=== PATIENT | female | born 1965 | race Caucasian/White ===

== ENCOUNTER → 2016-08-30 | Outpatient (CLI) | payer BC, OTHER ==
[~2016-08-30] MED LIST: ALPR.25T; ALPR.5T PO; ATEN25TA; CLIN300C11 PO; CYAN10007 PO; DEXL60CA PO; DICY20TA10 PO; DICY20TA33 PO; HCT25T PO; HYDR-3812 PO; HYDR50TA3 PO; KCL20TCR; L.AC1CAP6 PO; LISI10TA2 PO; META-84 PO; METO25TA PO; MULT-608; NF-ACI30T PO; NORE1TAB40 PO; OMEG1CAP51 PO; OMG1KC; PANT20TA2 PO; PANT40TA2 PO; POTA99TA7 PO; POTASSIUM 8 MEQ PO; RANI150C11 PO; RT-ALBUINH IH; SERT50TA; SERT50TA PO; SPIR100T; SPIRONOLACTONE; SPRN25T; SPRN25T PO; SULF1TAB35 PO; TRAM-21; VIT PO; [UNRECOGNIZED DRUG - OTHER] PO
[2016-08-30 15:45] LABS: BLOOD UREA NITROGEN 16 MG/DL (7-18); BUN/CREATININE RATIO 19; CREATININE SERUM 0.84 MG/DL (0.60-1.30); GFR ESTIMATED > 60
[2016-08-31 07:39] LABS: BERMUDA CL CLASS 0; BERMUDA GRASS RAST <0.35 kU/L (<0.35); ELM TREE <0.35 kU/L (<0.35); ELM TREE CL CLASS 0; KENT BLUE CL CLASS 0; KENTUCKY BLUE GRASS RAST <0.35 kU/L (<0.35); OAK TREE <0.35 kU/L (<0.35); OAK TREE CL CLASS 0; PECAN TR CL CLASS 0
[2016-08-31 07:40] LABS: CAT DANDER CL CLASS 0; CAT DANDER RAST <0.35 kU/L (<0.35); DOG DANDER CL CLASS 0; DOG DANDER RAST <0.35 kU/L (<0.35); DUST MITE RAST <0.35 kU/L (<0.35); JOHNSON GR CL CLASS 0; JOHNSON GRASS RAST <0.35 kU/L (<0.35); MARSH ELDER RAST <0.35 kU/L (<0.35); RAGWEED CL CLASS 0; RAGWEED RAST <0.35 kU/L (<0.35); ROUGH MARSH CL CLASS 0
[2016-08-31 07:41] LABS: ALLERGEN INTERP SEE FOOTNOTE; ALT TEN CL CLASS 0; CLADOSPORIUM CL CLASS 0; CLADOSPORIUM MOLD RAST <0.35 kU/L (<0.35); DUST MITE CL CLASS 0
== END ==
LOC: LAB 14:57
PROVIDERS: ATTEND Nurse Practitioner Family
DX: R76.11 Nonspecific reaction to tuberculin skin test without active tuberculosis (principal); R06.00 Dyspnea, unspecified; J30.9 Allergic rhinitis, unspecified
CPT/HCPCS: 36415; 82565; 84520; 86003; 86480

== ENCOUNTER 2016-09-04 10:52 | Outpatient (CLI) | payer OTHER | END 2016-09-04 11:13 | disposition home or self-care (01) | LOC: SLEEP 10:52 | PROVIDERS: ATTEND Nurse Practitioner Family | DX: G47.50 Parasomnia, unspecified (principal); G47.10 Hypersomnia, unspecified ==

== ENCOUNTER → 2016-09-05 | Outpatient (CLI) | payer BC, OTHER ==
[~2016-09-05] MED LIST changes: +RT-ALBUTEROL SULF 2.5 MG/3 ML PRE-MIX VIAL IH ONE
== END ==
LOC: RT 15:09
PROVIDERS: ATTEND Nurse Practitioner Family
DX: R05 Cough (principal); R06.00 Dyspnea, unspecified; R76.11 Nonspecific reaction to tuberculin skin test without active tuberculosis; M79.89 Other specified soft tissue disorders; J30.9 Allergic rhinitis, unspecified
CPT/HCPCS: 94060; 94640; 94726; 94729

== ENCOUNTER → 2016-09-06 | Outpatient (CLI) | payer BC, OTHER ==
[~2016-09-06] MED LIST changes: -RT-ALBUTEROL SULF 2.5 MG/3 ML PRE-MIX VIAL IH ONE
[2016-09-06] MEDS: IOHEXOL 350 MG/ML 150 ML (OMNIPAQUE 350) VIAL IV ONE (17:48)
[2016-09-06] MEDS: NS 100 ML (IVPB) BAG IV ONE (17:49)
--- NOTE | 2016-09-06 17:59 | Diagnostic Imaging Report ---
PROCEDURE: CT angiography of the chest with contrast. TECHNIQUE: Multiple contiguous axial images were obtained through the chest after uneventful bolus administration of intravenous contrast. Reconstructed CTA MIP acquisitions were also performed. INDICATION: Chest pain and leg swelling. COMPARISON: 10/27/2014. FINDINGS: There is no evidence of pulmonary embolus. No thoracic aortic abnormality is suspected. There is some motion artifact which limits evaluation of the ascending aorta and a portion of the aortic arch. There is no pneumothorax or pleural fluid demonstrated. The lungs are clear. There is a small hiatal hernia. Visualized upper abdomen is unremarkable. There is no adenopathy. No acute osseous abnormality is suspected. IMPRESSION: There is no evidence of pulmonary embolus or other acute abnormality in the chest. There is a small hiatal hernia. Dictated by: Dictated on workstation # [id number]
== END ==
LOC: RAD 16:00
PROVIDERS: ATTEND Nurse Practitioner Family
DX: M79.89 Other specified soft tissue disorders (principal); R76.11 Nonspecific reaction to tuberculin skin test without active tuberculosis; R06.00 Dyspnea, unspecified; K44.9 Diaphragmatic hernia without obstruction or gangrene
CPT/HCPCS: 71275

== ENCOUNTER → 2016-10-15 | Outpatient (CLI) | payer BC, OTHER ==
[2016-10-15 16:26] LABS: ALBUMIN 4.1 GM/DL (3.2-4.5); BILIRUBIN,TOTAL 0.3 MG/DL (0.1-1.0); CALCIUM 8.9 MG/DL (8.5-10.1); CREATININE SERUM 1.06 MG/DL (0.60-1.30); TOTAL PROTEIN 7.2 GM/DL (6.4-8.2)
== END ==
LOC: LAB 15:41
PROVIDERS: ATTEND Nurse Practitioner Family
DX: R76.11 Nonspecific reaction to tuberculin skin test without active tuberculosis (principal)
CPT/HCPCS: 36415; 80053

== ENCOUNTER → 2016-11-16 | Outpatient (CLI) | payer BC, OTHER ==
--- NOTE | 2016-11-17 08:15 | Diagnostic Imaging Report ---
INDICATION: Digital mammogram bilateral screening with tomosynthesis. This study was compared to the prior exam of 10/12/14 and 08/13/13. At this time there are no current complaints. The current study was also evaluated with a Computer Aided Detection (CAD) system. FINDINGS: There is only a mild amount of fibroglandular tissue in both breasts. When compared to the previous study there does not appear to have been any significant change. There is no primary or secondary sign of malignancy noted. The 3-D tomographic views also fail to show any sign of malignancy. The stereotactic clips in the lateral aspect of the left breast seen previously are again evident and no different. IMPRESSION: There is no evidence malignancy. ACR BI-RADS Category 1: Negative. Result letter will be mailed to the patient. Note: At least 10% of breast cancer is not imaged by mammography. Dictated by: Dictated on workstation # [id number]
== END ==
LOC: RAD 10:26
PROVIDERS: ATTEND Family Medicine
DX: Z12.31 Encounter for screening mammogram for malignant neoplasm of breast (principal)
CPT/HCPCS: 77067

== ENCOUNTER → 2017-06-13 | Outpatient (CLI) | payer BC, OTHER ==
[~2017-06-13] MED LIST changes: +ACHD5005 PO; -HYDR-3812 PO
[2017-06-13 10:23] LABS: BASOPHILS # (AUTO) 0.1 10^3/uL (0.0-0.1); BASOPHILS % (AUTO) 1 % (0-10); EOSINOPHILS # (AUTO) 0.2 10^3/uL (0.0-0.3); EOSINOPHILS % (AUTO) 2 % (0-10); HEMATOCRIT 44 % (35-52); HEMOGLOBIN 14.7 G/DL (11.5-16.0); LYMPHOCYTES # (AUTO) 2.1 X 10^3 (1.0-4.0); LYMPHOCYTES % (AUTO) 26 % (12-44); MEAN CORPUSCULAR HEMOGLOBIN 29 PG (25-34); MEAN CORPUSCULAR HGB CONC 34 G/DL (32-36); MEAN CORPUSCULAR VOLUME 85 FL (80-99); MONOCYTES # (AUTO) 0.6 X 10^3 (0.0-1.0); MONOCYTES % (AUTO) 8 % (0-12); NEUTROPHILS # (AUTO) 5.1 X 10^3 (1.8-7.8); NEUTROPHILS % (AUTO) 64 % (42-75); PLATELET COUNT 288 10^3/uL (130-400); RED BLOOD COUNT 5.12 10^6/uL (4.35-5.85); RED CELL DISTRIBUTION WIDTH 13.6 % (10.0-14.5)
== END ==
LOC: LAB 10:12
PROVIDERS: ATTEND Nurse Practitioner Family
DX: R76.11 Nonspecific reaction to tuberculin skin test without active tuberculosis (principal)
CPT/HCPCS: 36415; 85025

== ENCOUNTER 2017-11-07 08:38 | Outpatient (RCR) | payer BC, OTHER | END 2017-12-10 13:18 | disposition home or self-care (01) | PROVIDERS: ATTEND Family Medicine | DX: M48.02 Spinal stenosis, cervical region (principal); M51.36 Other intervertebral disc degeneration, lumbar region ==

== ENCOUNTER → 2018-10-09 | Outpatient (CLI) | payer BC, OTHER ==
--- NOTE | 2018-10-09 18:59 | Diagnostic Imaging Report ---
INDICATION: Routine screening. COMPARISON: Comparison is made with prior mammogram 11/16/2016 and 10/12/2014. 2-D and 3-D bilateral screening mammography was performed. The current study was also evaluated with a Computer Aided Detection (CAD) system. 3-D tomosynthesis was also performed and reviewed. FINDINGS: Both breasts are primarily involutional. Benign-appearing nodule in the outer portion of the right breast is stable. There are marker clips from prior biopsy in the lateral portion of the left breast, unchanged. No new mass or malignant-appearing microcalcifications are seen. Axillae are unremarkable. IMPRESSION: No mammographic features suspicious for malignancy are identified. ACR BI-RADS Category 2: Benign findings. Result letter will be mailed to the patient. Note: At least 10% of breast cancer is not imaged by mammography. Dictated by: Dictated on workstation # [id number]
== END ==
LOC: RAD 10:50
PROVIDERS: ATTEND Family Medicine
DX: Z12.31 Encounter for screening mammogram for malignant neoplasm of breast (principal)
CPT/HCPCS: 77067

== ENCOUNTER → 2019-10-14 | Outpatient (CLI) | payer OTHER ==
--- NOTE | 2019-10-15 08:42 | Diagnostic Imaging Report ---
INDICATION: Routine screening. COMPARISON: 10/09/2018 and 11/16/2016. TECHNIQUE: 2D and 3D bilateral screening mammography was performed with CAD. FINDINGS: Scattered fibroglandular densities are identified bilaterally. Biopsy marker clips in the lateral left breast are again noted. The benign nodule in the outer right breast is stable. No spiculated mass or malignant appearing microcalcifications are seen. The axillae are unremarkable. IMPRESSION: No mammographic features suspicious for malignancy are identified. ACR BI-RADS Category 2: Benign findings. Result letter will be mailed to the patient. Note: At least 10% of breast cancer is not imaged by mammography. Dictated by: Dictated on workstation # [id number]
== END ==
LOC: RAD 15:11
PROVIDERS: ATTEND Family Medicine
DX: Z12.31 Encounter for screening mammogram for malignant neoplasm of breast (principal)
CPT/HCPCS: 77063; 77067

== ENCOUNTER → 2019-11-11 | Outpatient (CLI) | payer OTHER ==
--- NOTE | 2019-11-12 15:34 | Diagnostic Imaging Report ---
PATIENT: Gema Abrams : 1965 EXAMINATION: Right hip, 2 views, on 11/11/2019 at 3:04 PM. INDICATION: Right hip pain for three weeks. FINDINGS: Two views of the right hip were obtained. Femoral acetabular alignment is normal. Joint space is well maintained. Femoral head and neck are intact. No fracture is identified. IMPRESSION: No acute bony abnormality is detected. Dictated by: Dictated on workstation # [id number]
== END ==
LOC: RAD 14:36
PROVIDERS: ATTEND Family Medicine
DX: M25.551 Pain in right hip (principal)
CPT/HCPCS: 73502

== ENCOUNTER → 2019-12-22 | Outpatient (CLI) | payer OTHER ==
--- NOTE | 2019-12-22 15:19 | Diagnostic Imaging Report ---
PROCEDURE: MRI lumbar spine without contrast. TECHNIQUE: Multiplanar, multisequence MRI of the lumbar spine was performed without contrast. INDICATION: Chronic low back pain. No known injury. COMPARISON: 07/08/2014. FINDINGS: 5 lumbar type vertebral bodies are visualized with the last well-formed disc space designated L5-S1. No acute fracture or dislocation is seen in the lumbar spine. There is straightening of the lumbar spine. Vertebral body heights are maintained. Endplate degenerative changes are present at the L3-L4 level. The conus terminates at the L1 level. No masses are seen associated with the conus or nerve roots of the cauda equina. No epidural collections are identified. Multilevel degenerative changes are seen in the lumbar spine with disc bulges, facet hypertrophy, and buckling of the ligamentum flavum. T12-L1: Broad-based disc bulge, facet hypertrophy, and buckling of ligamentum flavum results in iykb-to-zsspoulc spinal canal narrowing and mild bilateral foraminal narrowing. L1-L2: Broad-based disc bulge, facet hypertrophy, and buckling of ligamentum flavum results in ohti-qy-rkqrxkvf spinal canal narrowing and mild bilateral foraminal narrowing. L2-L3: Right subarticular protrusion, facet hypertrophy, and buckling of ligamentum flavum results in hircxjks-he-ttfwcd right lateral recess stenosis and moderate right and mild left foraminal stenosis. L3-L4: Broad-based disc bulge, facet hypertrophy, and buckling of ligamentum flavum results in sillaigq-vg-lcdqps spinal canal stenosis and moderate bilateral foraminal stenosis. L4-L5: Broad-based disc bulge, facet hypertrophy, and buckling of the ligamentum flavum results in moderate spinal canal stenosis and moderate bilateral foraminal stenosis. L5-S1: Broad-based disc bulge, facet hypertrophy, and buckling of the ligamentum flavum results in no significant spinal canal narrowing and severe left and irjqzkvz-up-mcbnlz right foraminal stenosis. Paravertebral soft tissues are unremarkable. IMPRESSION: 1. No acute fracture or dislocation in the lumbar spine. 2. Multilevel degenerative changes in the lumbar spine, greatest at L3-L4, L4-L5, and L5-S1. Overall, the degenerative changes have progressed since the prior exam from 2014. Dictated by: Dictated on workstation # [id number]
== END ==
LOC: RAD 12:30
PROVIDERS: ATTEND Physician Assistant
DX: M47.27 Other spondylosis with radiculopathy, lumbosacral region (principal)
CPT/HCPCS: 72148

== ENCOUNTER → 2020-02-29 | Outpatient (CLI) | payer OTHER ==
[~2020-02-29] MED LIST changes: -CLIN300C11 PO; +CLIN300C12 PO
== END ==
LOC: LABNPT 05:58
PROVIDERS: ATTEND Orthopaedic Surgery Orthopaedic Surgery of the Spine
DX: Z01.812 Encounter for preprocedural laboratory examination (principal); Z20.828 Contact with and (suspected) exposure to other viral communicable diseases
CPT/HCPCS: 87635

== ENCOUNTER → 2020-06-01 | Outpatient (CLI) | payer OTHER ==
[~2020-06-01] MED LIST changes: +CATHETER FLUSH 10 ML SYR IV PRN; +HOLD METFORMIN - RECEIVED CONTRAST 20 ML VIAL IV SCH; -HYDR50TA3 PO; +HYDR50TA6 PO; +IOHEXOL 350 MG/ML 100 ML (OMNIPAQUE 350) VIAL IV ONE; -LISI10TA2 PO; +LISI10TA25 PO; +NS 100 ML (IVPB) BAG IV ONE
--- NOTE | 2020-06-01 08:02 | Diagnostic Imaging Report ---
EXAMINATION: CT Abdomen and Pelvis with intravenous contrast. TECHNIQUE: Multiple contiguous axial images were obtained through the abdomen and pelvis after the uneventful administration of intravenous contrast. All CT scans use one or more of the following dose optimizing techniques: automated exposure control, MA and/or KvP adjustment based on a patient size and exam type, or iterative reconstruction. HISTORY: Generalized abdominal pain and bloating. COMPARISON: 10/13/2013 FINDINGS: Limited views of the lower thorax are unremarkable. Liver is mildly steatotic. No suspicious liver lesions are seen. There is no biliary ductal dilation. Gallbladder is absent. Pancreas is normal. Spleen is normal. Adrenal glands are normal. The kidneys are normal. There is no hydronephrosis. Urinary bladder is normal. Visualized bowel is normal in caliber without obstruction or inflammation. There is diverticulosis without diverticulitis. Appendix is normal. There is a small fat-containing umbilical hernia. No free fluid or air. No abdominal or pelvic lymphadenopathy. Aorta is normal in caliber without aneurysm. There are no suspicious osseous lesions. IMPRESSION: 1. No acute abnormality in the abdomen or pelvis. Dictated by: Dictated on workstation # [id number]
== END ==
LOC: RAD 08:15
PROVIDERS: ATTEND Family Medicine
DX: R10.84 Generalized abdominal pain (principal); R14.0 Abdominal distension (gaseous)
CPT/HCPCS: 74177

== ENCOUNTER 2020-06-23 05:37 | Outpatient (CLI) | payer OTHER ==
[~2020-06-23] VITALS: Ht 170.2 cm; Wt 102.3 kg
[~2020-06-23 05:37] MED LIST changes: -CATHETER FLUSH 10 ML SYR IV PRN; -HOLD METFORMIN - RECEIVED CONTRAST 20 ML VIAL IV SCH; -IOHEXOL 350 MG/ML 100 ML (OMNIPAQUE 350) VIAL IV ONE; -NS 100 ML (IVPB) BAG IV ONE
[2020-06-27] MEDS ORDERED: SERT50TA2 PO (15:20)
[2020-06-27] MEDS ORDERED: FLUT50BL IH (15:20)
[2020-06-27] MEDS ORDERED: CHOL50005 PO (15:20)
[2020-06-27] MEDS ORDERED: ASPI-999 PO (15:20)
[2020-06-27] MEDS ORDERED: SITA50TA PO (15:20)
[2020-06-27] MEDS ORDERED: CYAN100088 PO (15:20)
[2020-07-01] MEDS ORDERED: RIFA550T PO (10:15)
== END 2020-06-28 07:35 | disposition home or self-care (01) ==
LOC: PREOP 05:37
PROVIDERS: ATTEND Internal Medicine
DX: Z01.818 Encounter for other preprocedural examination (principal)

== ENCOUNTER 2020-07-01 07:41 | Day surgery (SDC) | payer OTHER ==
--- NOTE | 2020-06-21 10:33 | HISTORY AND PHYSICAL ---
DATE OF SERVICE: COLONOSCOPY HISTORY AND PHYSICAL DATE OF ADMISSION: 07/01/2020. HISTORY OF PRESENT ILLNESS: The patient is a 55-year-old white female referred by Dr. Beck for colonoscopy. She has a past history of colon polyps and last underwent colonoscopy five years ago per Dr. Christopher. At that time, she did have evidence for mild to moderate diverticular disease, questionable early diverticulitis and two small hyperplastic polyps were removed from the sigmoid colon. She also underwent EGD at that time, which revealed grade II reflux changes per his report with no other significant abnormalities and she was H. pylori negative. There was no evidence for Blunt's change. She states that at least since that time and possibly a few years previous, she has had episodes of predominant diarrhea with urgency and bloating. Sometimes, she will have mucus in her stool. She has had a couple episodes of bright red blood per rectum without associated pain. She denies constipation. She does not recall that this was an issue in her 20s and 30s. She denies change in weight. Has had no melena but does have some crampy abdominal pain as I recall. On several occasions over the past month or two, she has actually had to get up at night to defecate with some urgency. She has had no night sweats, chills or fever. PAST MEDICAL HISTORY: Significant for some issues with cervical stenosis in the past. She has not required surgery and has had some lumbar radiculopathy, which also has not required surgery. She recently did undergo CT scan of the abdomen, which revealed a small fat-containing umbilical hernia with no other significant abnormalities being noted. History of type 2 diabetes. PAST SURGICAL HISTORY: She has had cholecystectomy in the past. FAMILY HISTORY: Mother had diverticulitis that required surgery for a while, had a colostomy before, she underwent successful takedown, is living at the age of 76, she has a history of irritable bowel syndrome. Father at the age of 68 of diabetic related complications. She has 3 brothers, one of whom is a type 1 diabetic. She has two sisters, both of which have type 2 diabetes. She is not aware of any family history of colon cancer. SOCIAL HISTORY: She has a 81-uwwf-cjem smoking history, quit 21 years ago with rare alcohol usage. 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 REVIEW OF SYSTEMS: CONSTITUTIONAL: She denies night sweats, chills, fever or change in weight. GASTROINTESTINAL: As noted in the HPI. PULMONARY: She denies cough, wheezing or shortness of breath. CARDIOVASCULAR: She denies orthopnea, PND, pedal edema, dyspnea on exertion, syncope or presyncope. PHYSICAL EXAMINATION: GENERAL: Reveals a pleasant white female in no acute distress. VITAL SIGNS: Weight 241.8 pounds, blood pressure 130/80. HEENT: Unremarkable. CHEST: Clear to auscultation. CARDIOVASCULAR: Reveals a regular rate and rhythm without murmur, S3 or S4. ABDOMEN: Soft, supple. She has some mild bilateral lower quadrant discomfort to palpation without rebound or guarding. No mass or organomegaly are noted. No umbilical pain noted. EXTREMITIES: Reveal no cyanosis, clubbing or edema. ASSESSMENT AND PLAN: The patient will be set up for diagnostic colonoscopy due to bowel habit change with bilateral lower quadrant abdominal pain, some occasional episodes of bright red blood per rectum. Procedure will be done under Diprivan based anesthesia. I thank you for the referral of this pleasant lady. Job ID: [id number] DocumentID: [id number] Dictated Date: 06/21/2020 09:47:39 Roving Can Tender Date: 06/21/2020 10:33:05 Dictated By: NYDIA MILNER MD MTDD
[2020-07-01] VITALS (7 sets, daily range): BP systolic 110–135; BP diastolic 60–86
[~2020-07-01] VITALS: Ht 170.2 cm; Wt 102.3 kg
[~2020-07-01 07:41] MED LIST changes: +ASPI-999 PO; +CHOL50005 PO; +CYAN100088 PO; +FLUT50BL IH; +SERT50TA2 PO; +SITA50TA PO
[2020-07-01] MEDS ORDERED: LACTATED RINGERS 1,000 ML IV ONE (07:42)
[2020-07-01] MEDS ORDERED: HURRICAINE EXT TUBE (BENZOCAINE) XX PRN (08:00)
[2020-07-01] MEDS ORDERED: LIDOCAINE JELLY 2% 6 ML SYRINGE MM PRN (08:00)
[2020-07-01] MEDS ORDERED: LACTATED RINGERS 1,000 ML IV PRN (08:00)
--- NOTE | 2020-07-01 08:02 | Pre-Op Note & Conscious Sedat ---
Pre-Operative Progress Note H&P Reviewed The H&P was reviewed, patient examined and no changes noted. Date H&P Reviewed: Jul 01, 2020 Time H&P Reviewed: 08:01 Conscious Sedation Pre-Proced ASA Score 2 For ASA 3 and 4: Consider anesthesia and medical clearance. Also, for patients with a history of failed moderate sedation consider anesthesia. Airway Lungs Heart ASA score ASA 1: a normal healthy patient ASA 2: a patient with a mild systemic disease (mid diabetes, controlled hypertension, obesity ASA 3: a patient with a severe systemic disease that limits activity (angina, COPD, prior Myocardial infarction) ASA 4: a patient with an incapacitating disease that is a constant threat to life (CHF, renal failure) ASA 5: a moribund patient not expected to survive 24 hrs. (ruptured aneurysm) ASA 6: a declared brain- patient whose organs are being harvested. For emergent operations, add the letter E after the classification Mallampati Classification Grade 2 Sedation Plan Analgesia, Amnesia, Plan communicated to team members, Discussed options with patient/fam, Discussed risks with patient/fam The patient is an appropriate candidate to undergo the planned procedure, sedation, and anesthesia. The patient immediately re-assessed prior to indication. NYDIA MILNER MD Jul 01, 2020 08:02
[2020-07-01] MEDS ORDERED: MIDAZOLAM 2 MG/2 ML (VERSED) VIAL ONE (08:03)
[2020-07-01] MEDS ORDERED: PROPOFOL INJECTION 50 ML IV ONE ×2 (08:03→08:49)
[2020-07-01] MEDS ORDERED: ALPR0.25 PO (08:21)
[2020-07-01] MEDS ORDERED: ONDN4T PO (08:21)
[2020-07-01] MEDS ORDERED: LIDOCAINE JELLY 2% 6 ML SYRINGE ONE (08:26)
[2020-07-01] MEDS ORDERED: HURRICAINE EXT TUBE (BENZOCAINE) ONE (08:26)
--- NOTE | 2020-07-01 09:40 | Anesthesia-General Post-Op ---
MAC Patient Condition Mental Status/LOC: Same as Preop Cardiovascular: Satisfactory Nausea/Vomiting: Absent Respiratory: Satisfactory Pain: Controlled Complications: Absent Post Op Complications Complications None Follow Up Care/Instructions Patient Instructions None needed. Anesthesiology Discharge Order Discharge Order Patient is doing well, no complaints, stable vital signs, no apparent adverse anesthesia problems. No complications reported per nursing. NICKO HERRERA CRNA Jul 01, 2020 09:40
[2020-07-01] MEDS ORDERED: RIFA550T PO (10:15)
--- NOTE | 2020-07-01 19:26 | OPERATIVE REPORT ---
DATE OF SERVICE: PANENDOSCOPY SUMMARY Panendoscopy was performed for epigastric pain and reflux symptoms despite proton pump inhibitor therapy as well as rectal bleeding. The endoscope was inserted in the oral cavity and under direct visualization and the esophagus was intubated. The endoscope was passed down the esophagus through the stomach and second portion of the duodenum. A careful inspection was made as the endoscope was withdrawn. FINDINGS: The posterior pharynx, arytenoid aperture, epiglottis and true and false vocal folds were unremarkable. The proximal and mid esophagus was unremarkable. Findings compatible with LA grade A erosive esophagitis were present and biopsies were obtained from the GE junction. No endoscopic evidence for Blunt's change was noted. The cardia of the stomach was unremarkable. There were multiple small fundal appearing polyps, largest one was removed and submitted for histopathology. Some mild patchy antral erythema was noted. A biopsy was obtained and submitted for Helicobacter evaluation. The pylorus, the pyloric channel, the duodenal bulb and second portion of duodenum were unremarkable. ASSESSMENT: LA grade A erosive esophagitis were present without evidence for stricture formation or Blunt's change. Biopsies were obtained. Multiple small benign fundal appearing polyps were noted, largest one was removed and submitted for histopathology, likely due to this patient's chronic proton pump inhibitor therapy. The mild patchy antral erythema is noted. Biopsies pending for Helicobacter evaluation. No evidence for peptic ulcer disease was noted. Further recommendations will be forthcoming after histopathology results are available. Prior to undergoing colonoscopy, digital rectal evaluation was performed. Anal sphincter tone was normal and the perianal reflexes intact. Digital rectal evaluation revealed no evidence for internal or external hemorrhoids and unremarkable on inspection. The colonoscope was then inserted into the rectum and under direct visualization advanced to cecum. The cecum was identified by identification of ileocecal valve and cecal strap. Photographic documentation was obtained. Careful inspection was made as the colonoscope withdrawn. FINDINGS: There were no evidence for internal or external hemorrhoids. There were some telangiectatic blood vessels just above the dentate line without evidence for proctitis. The most likely cause of this patient's bleeding, fissure formation was noted. The rectum was an otherwise unremarkable. There was a diminutive polyp removed from the proximal sigmoid colon with hyperplastic features. Several small to medium size sigmoid diverticulum were present about evidence for diverticulitis. The remainder of the sigmoid colon, descending colon, transverse colon, ascending colon and cecum were unremarkable. Quality of prep was fair. ASSESSMENT: One diminutive polyp, hyperplastic features was removed from the proximal sigmoid colon. Mild diverticular disease confined to the sigmoid colon was present without evidence for diverticulitis. The patient did have some telangiectatic blood vessels in the distal anal canal, most likely source of this patient's bleeding. She did have an irritable bowel type response and has been having significant urgency and postprandial frequency, having a significant negative impact on her quality of life. She has not gained significant benefit from antispasmodics in the past, so I did prescribe a course of Xifaxan 550 mg t.i.d. to take for 2 weeks. With discussion that retreatment may be required pending initial response. She is otherwise reassured by today's colonoscopic findings. I thank you for the referral of this pleasant lady. Job ID: [id number] DocumentID: [id number] Dictated Date: 07/01/2020 10:53:19 Vocational Nurse Date: 07/01/2020 19:25:38 Dictated By: NYDIA MILNER MD MTDD
== END 2020-07-01 10:10 | disposition home or self-care (01) ==
LOC: ENDO 07:41
PROVIDERS: ATTEND Internal Medicine
DX: K62.5 Hemorrhage of anus and rectum (principal); K31.7 Polyp of stomach and duodenum; K29.50 Unspecified chronic gastritis without bleeding; K21.00 Gastro-esophageal reflux disease with esophagitis, without bleeding; K63.5 Polyp of colon; K31.89 Other diseases of stomach and duodenum; K22.10 Ulcer of esophagus without bleeding; K57.30 Diverticulosis of large intestine without perforation or abscess without bleeding; M54.16 Radiculopathy, lumbar region; M48.02 Spinal stenosis, cervical region; I10 Essential (primary) hypertension; J45.909 Unspecified asthma, uncomplicated; G47.33 Obstructive sleep apnea (adult) (pediatric); E11.9 Type 2 diabetes mellitus without complications; E66.9 Obesity, unspecified; F32.9 Major depressive disorder, single episode, unspecified; F41.9 Anxiety disorder, unspecified; Z86.010 Personal history of colon polyps; Z90.49 Acquired absence of other specified parts of digestive tract; Z87.891 Personal history of nicotine dependence; Z88.8 Allergy status to other drugs, medicaments and biological substances; Z79.82 Long term (current) use of aspirin; Z99.89 Dependence on other enabling machines and devices; Z68.35 Body mass index [BMI] 35.0-35.9, adult; Z79.84 Long term (current) use of oral hypoglycemic drugs
CPT/HCPCS: 88305

== ENCOUNTER → 2020-11-23 | Outpatient (CLI) | payer OTHER ==
[~2020-11-23] MED LIST changes: +ALPR0.25 PO; +ONDN4T PO; +RIFA550T PO; -SULF1TAB35 PO; +SULF1TAB38 PO
--- NOTE | 2020-11-23 11:29 | Diagnostic Imaging Report ---
Indication: Routine screening. Comparison is made with prior mammogram 10/12/2019 and 10/09/2018. 2-D and 3-D bilateral screening mammography was performed with CAD. Both breast are primarily involutional. Benign nodule in the outer right breast is stable. Biopsy clips in the left breast are again noted. No new mass or malignant-appearing microcalcifications are seen. Axillae are unremarkable. Impression: BI-RADS Category 2. No mammographic features suspicious for malignancy are identified. Dictated by: Dictated on workstation # [id number]
== END ==
LOC: RAD 10:00
PROVIDERS: ATTEND Family Medicine
DX: Z12.31 Encounter for screening mammogram for malignant neoplasm of breast (principal); I51.7 Cardiomegaly
CPT/HCPCS: 77063; 77067; 93306

== ENCOUNTER → 2020-12-21 | Outpatient (CLI) | payer OTHER ==
[~2020-12-21] MED LIST changes: +RT-ALBUTEROL SULF 2.5 MG/3 ML PRE-MIX VIAL INH ONE
== END ==
LOC: RT 08:00
PROVIDERS: ATTEND Nurse Practitioner Family
DX: J45.909 Unspecified asthma, uncomplicated (principal)
CPT/HCPCS: 94060; 94726; 94729

== ENCOUNTER → 2020-12-26 | Outpatient (CLI) | payer OTHER ==
[~2020-12-26] MED LIST changes: -RT-ALBUTEROL SULF 2.5 MG/3 ML PRE-MIX VIAL INH ONE
== END ==
LOC: LABNPT 05:34
PROVIDERS: ATTEND Nurse Practitioner Family
DX: Z01.89 Encounter for other specified special examinations (principal)

== ENCOUNTER 2020-12-28 19:34 | Outpatient (CLI) | payer OTHER | END 2020-12-29 06:18 | disposition home or self-care (01) | LOC: SLEEP 19:34 | PROVIDERS: ATTEND Nurse Practitioner Family | DX: Z01.89 Encounter for other specified special examinations (principal); G47.33 Obstructive sleep apnea (adult) (pediatric); J45.909 Unspecified asthma, uncomplicated | CPT/HCPCS: 95810 ==

== ENCOUNTER → 2021-02-06 | Outpatient (CLI) | payer OTHER ==
[~2021-02-06] VITALS: Ht 167 cm; Wt 104.0 kg
[~2021-02-06] MED LIST changes: +CATHETER FLUSH 10 ML SYR IV PRN; +CLIN-144 PO; -CLIN300C12 PO
[2021-02-06 09:37] VITALS: BP 118/66
--- NOTE | 2021-02-06 12:42 | Cardiology Stress Test Report ---
Stress Test Report Date of Procedure/Referring: Date of Procedure: Feb 06, 2021 PCP Verena Pantoja MD Admitting Physician Mita Beck DO Indications: HTN Baseline Heart Rate: 73 Baseline Blood Pressure: Blood Pressure Systolic: 118 Blood Pressure Diastolic: 66 Vital Signs Date Time Temp Pulse Resp B/P (MAP) Pulse Ox O2 Delivery O2 Flow Rate FiO2 02/06/21 09:37 115 19 118/66 (83) 97 Room Air Baseline Vital Signs Vital Signs Date Time Temp Pulse Resp B/P (MAP) Pulse Ox O2 Delivery O2 Flow Rate FiO2 02/06/21 09:37 115 19 118/66 (83) 97 Room Air Baseline EKG: Baseline EKG: NSR Summary: After explaining the procedure and details to the patient, she signed the consent and was brought to the stress nuclear laboratory. Patient exercised on standard Chris protocol, EKG, heart rate and blood pressure were monitored continuously, resting and stress doses of radio tracer were injected, imaging was acquired and reviewed in the short axis, horizontal long axis and vertical long axis views Patient was able to exercise for a total of 6 minutes on Chris protocol, METs 7.3 Maximum heart rate 164 Maximum blood pressure 180/43 Stress EKG, Minimal nondiagnostic changes Recovery EKG, Return to baseline TID: 1.09 SSS: 2 SDS: 2 EF: 74 Conclusion: 1. Good exercise tolerance for a total of 6 minutes on standard Chris protocol, 7.3 METS achieving 99% of maximal expected heart rate 2. Appropriate heart rate response to exercise with hypertensive response to exercise with peak blood pressure 180/43 return to baseline during recovery 3. Minimal nondiagnostic EKG changes with exercise return to baseline during recovery 4. No significant ischemia or infarction on SPECT images 5. Normal left ventricular size, EF 74% VERENA PANTOJA MD Feb 06, 2021 12:42
== END ==
LOC: CARD 08:00
PROVIDERS: ATTEND Internal Medicine Cardiovascular Disease
DX: I10 Essential (primary) hypertension (principal); I25.10 Atherosclerotic heart disease of native coronary artery without angina pectoris
CPT/HCPCS: 78452; 93017; A9502

== ENCOUNTER → 2021-12-13 | Outpatient (CLI) | payer BC, OTHER ==
[~2021-12-13] MED LIST changes: -CATHETER FLUSH 10 ML SYR IV PRN; +RT-ALBUTEROL SULF 2.5 MG/3 ML PRE-MIX VIAL INH ONE
--- NOTE | 2021-12-13 13:57 | Diagnostic Imaging Report ---
INDICATION: Routine screening. COMPARISON: 11/23/2020 and 10/14/2019. TECHNIQUE: 2D and 3D bilateral screening mammography was performed with CAD. FINDINGS: Scattered fibroglandular densities are identified bilaterally. A benign nodule in the outer right breast is stable. Biopsy clips in the outer left breast are noted. No spiculated mass or malignant-appearing microcalcifications are seen. The axillae are unremarkable. IMPRESSION: No mammographic features suspicious for malignancy are identified. ACR BI-RADS Category 2: Benign findings. Result letter will be mailed to the patient. Note: At least 10% of breast cancer is not imaged by mammography. Dictated by: Dictated on workstation # [id number]
== END ==
LOC: RAD 10:15
PROVIDERS: ATTEND Family Medicine
DX: Z12.31 Encounter for screening mammogram for malignant neoplasm of breast (principal); J45.40 Moderate persistent asthma, uncomplicated
CPT/HCPCS: 77063; 77067; 94060; 94726; 94729

== ENCOUNTER → 2022-12-14 | Outpatient (CLI) | payer BC, OTHER ==
[~2022-12-14] MED LIST changes: -RT-ALBUTEROL SULF 2.5 MG/3 ML PRE-MIX VIAL INH ONE
--- NOTE | 2022-12-14 11:25 | Diagnostic Imaging Report ---
Indication: Routine screening. Comparison is made with prior mammograms 12/13/2021 and 11/23/2020. 2-D and 3-D bilateral screening mammography was performed with CAD. Scattered fibroglandular densities are identified bilaterally. A benign nodule in the outer right breast is stable. No new mass or malignant-appearing microcalcifications are identified. Biopsy clips in the left breast are again noted. The axillae are unremarkable. IMPRESSION: BI-RADS Category 2 No mammographic features suspicious for malignancy are identified. ACR BI-RADS Category 2: Benign findings. Result letter will be mailed to the patient. Note: At least 10% of breast cancer is not imaged by mammography. Dictated by: Dictated on workstation # [id number]
== END ==
LOC: RAD 07:48
PROVIDERS: ATTEND Family Medicine
DX: Z12.31 Encounter for screening mammogram for malignant neoplasm of breast (principal)
CPT/HCPCS: 77063; 77067